=== PATIENT | female | born 1960 | race Caucasian/White ===

== ENCOUNTER 2020-04-04 12:40 | Outpatient (CLI) | payer MEDICAID ==
--- NOTE | 2020-04-04 18:45 | Consultation ---
DATE OF CONSULTATION: 04/04/2020 GASTROENTEROLOGY CONSULTATION CONSULTING PHYSICIAN: José Antonio Squires MD CHIEF COMPLAINT: Crohn disease. HISTORY OF PRESENT ILLNESS: This is a 59-year-old female with diagnosis of Crohn disease since 1985. She had apparently Crohn disease in both the colon and small intestine. She had last colonoscopy about 2 years ago. The patient had multiple treatments for Crohn's including Remicade, which gave her shingles, so she stopped. 6MP gave her pancreatitis, so she stopped. No prior surgery for Crohn disease. The patient has multiple skin lesions from the Crohn's and infections. She has also fistulas. The patient has been on Cipro and Flagyl multiple times. PAST MEDICAL HISTORY: As dictated above. PAST SURGICAL HISTORY: None. MEDICATIONS: Prednisone 60 mg daily. FAMILY HISTORY: No family history of GI malignancies. SOCIAL HISTORY: The patient denies any tobacco, alcohol, or IV drug abuse. ALLERGIES: No known drug allergies. REVIEW OF SYSTEMS: A 10-point review of systems was performed and pertinent positives in HPI. PHYSICAL EXAMINATION: VITAL SIGNS: Temperature 97.7. Vital signs stable. HEENT: Normocephalic and atraumatic. Sclerae anicteric. NECK: Supple. No evidence of obvious lymphadenopathy. CARDIOVASCULAR: Regular rate and rhythm. Plus S1, S2. LUNGS: Clear to auscultation bilaterally. ABDOMEN: Positive bowel sounds. Soft and nontender. No rebound. No guarding. No peritoneal sign. EXTREMITIES: No cyanosis. No clubbing. No edema. ASSESSMENT AND PLAN: This is a 59-year-old female with Crohn disease. The patient at this time is refusing getting any treatment beside prednisone. I offered her to get Humira; she does not want to do it. I offered her colonoscopy. 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 The only thing she agreed at this time to have is Pentasa, so we are going to try to get approval for Pentasa 4 g a day. The patient to come back to clinic after treatment with Pentasa and when she is ready to have change in her medication either getting Humira and also when she is ready to get procedures like colonoscopy and endoscopy. José Antonio Ashlee Squires DR: Sherrie JOB#: [id number] CC:
== END 2020-04-04 14:40 | disposition home or self-care (01) ==
LOC: PAN 12:40
DX: K50.90 Crohn's disease, unspecified, without complications (principal)
CPT/HCPCS: G0463